=== PATIENT | male | born 1985 | race Caucasian/White ===

== ENCOUNTER 2018-06-06 14:08 | Emergency (ER) | payer SELFPAY ==
[~2018-06-06] VITALS: Ht 180.3 cm; Wt 77.1 kg
--- NOTE | 2018-06-06 14:54 | ED Neck-Back Pain/Injury ---
General Chief Complaint: Head/Cervical Problems Stated Complaint: SAMANTHA ARM NUMBNESS Nursing Triage Note: Feels like a rib is "slipped out." Took a xanax prior to arrival and is feeling better. Also is having numbness and tingling that started in both arms and hands at the same time as the rib pain. This has also improved but is still present. Has hx of herniated discs in neck that have been MRI'd before and has an appointment for further evaluation on the . Nursing Sepsis Screen: No Definite Risk History of Present Illness Date Seen by Provider: June 06, 2018 Time Seen by Provider: 14:45 Initial Comments This is a 32 y/o m who presents to the ED for evaluation. 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 Symptoms have been on going since 2014. Has known bulging discs to C4-C6. States that he intermittently gets radiation of pain into L rib region which he states he has attributed to a displaced rib, has responded well to self-manipulation and chiropractic manipulation. States today he felt like the rib was out. Was lying prone on the ground and had a friend "pop" it in. States he had acute onset of increased neuropathy down LUE. No neck manipulation was done. Symptoms lasted < 1 min and then resolved. States that he had onset of panic attack en route. Took home Xanax en route and feels that this is improving. Denies any pain/ numbness/tingling on my evaluation. No headache, no neck pain. Has NSG follow up on 06/15/18 Allergies and Home Medications Allergies Coded Allergies: No Known Drug Allergies (Unverified , 06/06/18) Patient Home Medication List Home Medication List Reviewed: Yes Review of Systems Constitutional: No chills, No fever, No malaise EENTM: No blurred vision, No vision loss, No hoarseness Respiratory: No cough, No short of breath, No stridor, No wheezing Cardiovascular: No chest pain, No palpitations Gastrointestinal: No abdominal pain, No diarrhea, No nausea, No vomiting Musculoskeletal: muscle pain, muscle stiffness, muscle cramps, neck pain Psychiatric/Neurological: Paresthesia, Tingling, Tremors; Denies Weakness Past Bcivlts-Odvxhv-Vwrpgy Hx Patient Social History Recent Foreign Travel: No Contact w/Someone Who Travel: No Recent Infectious Disease Expo: No Physical Exam Vital Signs Vital Signs - First Documented 06/06/18 14:14 Temp 98.9 Pulse 107 Resp 22 B/P (MAP) 137/89 (105) Pulse Ox 100 Capillary Refill : Less Than 3 Seconds Height, Weight, BMI Height: 5'11.00" Weight: 170lbs. oz. 77.274889nc; BMI Method:Stated General Appearance: WD/WN, Anxious HEENT: PERRL/EOMI Neck: Full Range of Motion, Other (No midline spinal tenderness. Bilateral paraspinal muscles are soft and non-tender with no active spasm. ) Cardiovascular: Regular Rate, Rhythm, No JVD, No Murmur, Normal Peripheral Pulses Respiratory: Chest Non Tender, Normal Breath Sounds, No Accessory Muscle Use, No Respiratory Distress Gastrointestinal: Normal Bowel Sounds Extremity: Normal Capillary Refill, Normal Inspection, Normal Range of Motion, Non Tender, Other (Bialteral radial pulse +2/4. Intact sensation to Cervical dermatones to UE. Able to perform "peace sign", "a-okay" and "thumbs" bilateral) Neurologic/Psychiatric: Alert, Oriented x3 Skin: Normal Color, Warm/Dry Progress/Results/Core Measures Results/Orders My Orders Orders - LUCIO KEARNS DO Ketorolac Injection (Toradol Injection) (06/06/18 15:00) Vital Signs/I&O 06/06/18 14:14 Temp 98.9 Pulse 107 Resp 22 B/P (MAP) 137/89 (105) Pulse Ox 100 Blood Pressure Mean: 105 Progress Progress Note : Time: 15:00 Progress Note Pt with chronic neck pain that has been ongoing for more than 3 years. Today had an exacerbation that is not atypical for him but also precipitated an anxiety attack. Has some acute social stressors to increase anxiety. Asymptomatic on my evaluation other than mild-moderate anxiety. Neck is non- tender. normal neurological exam to Upper extremities. Has appropriate outpt follow up. Provided with Toradol IM in ED as pt feels this will help for future pain control. ER return precautions given. Pt verbalized understanding. All questions answered. Departure Impression Primary Impression: Neck pain Additional Impressions: Anxiety Panic attack Disposition: 01 HOME, SELF-CARE Condition: Improved Departure-Patient Inst. Decision time for Depature: 15:00 Referrals: NO,LOCAL PHYSICIAN (PCP/Family) Primary Care Physician Patient Instructions: Chronic Neck Pain (DC), Neck Sprain (DC) Add. Discharge Instructions: Please read the attached handouts. Continue your home medications. Take Ibuprofen 800mg three times a day with food for pain. Follow up with your primary care physician. Please return if your symptoms worsen or you have any other concerns. All discharge instructions reviewed with patient and/or family. Voiced understanding. LUCIO KEARNS DO June 06, 2018 14:54
[2018-06-06] MEDS ORDERED: KETOROLAC 60 MG/2 ML VIAL IM ONE (15:00)
[2018-06-06 15:20] VITALS: BP 137/89
== END 2018-06-06 15:21 | disposition home or self-care (01) ==
LOC: ER FS 14:10
DX: M54.2 Cervicalgia (principal); F41.0 Panic disorder [episodic paroxysmal anxiety]
CPT/HCPCS: 99284